=== PATIENT | female | born 1980 | race Caucasian/White ===

== ENCOUNTER → 2022-03-20 | Outpatient (CLI) | payer OTHER ==
[2022-03-20 16:18] LABS: HEMOGLOBIN 15.6 gm/dl (12.3-15.3); RED BLOOD COUNT 5.41 M/UL (4.00-5.10); WHITE BLOOD COUNT 8.1 K/UL (4.5-11.0)
[2022-03-20 16:49] LABS: BUN/CREATININE RATIO 25 (0-10)
[2022-03-21 08:19] LABS: HIV AB/P24 AG SCREEN Non Reactive (Non Reactive)
[2022-03-21 09:19] LABS: VITAMIN D, 25-HYDROXY 26.8 ng/mL (30.0-100.0)
[2022-03-22 18:13] LABS: HBSAG SCREEN Negative (Negative); HCV AB >11.0 (0.0-0.9); HEP A AB, IGM Negative (Negative); HEP B CORE AB, IGM Negative (Negative); HEPATITIS C QUANTITATION HCV Not Detected IU/mL (.)
[2022-03-23 12:09] LABS: QUANTIFERON MITOGEN VALUE >10.00 IU/mL (.); QUANTIFERON NIL VALUE 0.13 IU/mL (.); QUANTIFERON TB1 AG VALUE 0.14 IU/mL (.); QUANTIFERON TB2 AG VALUE 0.13 IU/mL (.); QUANTIFERON-TB GOLD PLUS Negative (Negative)
== END ==
LOC: LAB 13:59
PROVIDERS: Obstetrics & Gynecology
DX: Z00.00 Encounter for general adult medical examination without abnormal findings (principal)
CPT/HCPCS: 36415; 80053; 80061; 80074; 82140; 82607; 82728; 83036; 83540; 83735; 84439; 84443; 85027; 87389